=== PATIENT | female | born 1985 | race Caucasian/White ===

== ENCOUNTER 2018-07-15 16:10 | Day surgery (SDC) | payer SELFPAY ==
[2018-07-15] VITALS (13 sets, daily range): BP systolic 85–104; BP diastolic 44–94
[2018-07-15] MEDS ORDERED: NS(*) 0.9% 1000 ML BAG 1,000 ML IV ONE (16:30)
--- NOTE | 2018-07-15 16:44 | ER Report ---
History and Physical Time Seen By MD: 16:15 HPI/ROS CHIEF COMPLAINT: vaginal bleeding, syncope HISTORY OF PRESENT ILLNESS: at 10 wks presents with vaginal bleeding, cramping that began this am, followed by lightheadedness and syncope x 2. Continued vb, mild cramping, continued lightheaded. No cp/sob/palpitations/ No fam hx bleeding diathesis REVIEW OF SYSTEMS: Constitutional: No fever, no chills. Eyes: No discharge. ENT: No sore throat. Cardiovascular: No chest pain, no palpitations. Respiratory: No cough, no shortness of breath. Gastrointestinal: above Genitourinary: No dysuria; vb as above Musculoskeletal: No back pain. Skin: No rashes. Neurological: No headache. Remainder of the 14 system rev: Yes Allergies: Coded Allergies: Penicillins (Verified Allergy, Unknown, RASH, 07/15/18) codeine (Verified Allergy, Unknown, NAUSEA/VOMITING, 07/15/18) Reviewed Nurses Notes: Yes Hx Substance Use Disorder: No Hx Alcohol Use: No Constitutional Vital Sign - Last 24 Hours 07/15/18 07/15/18 07/15/18 07/15/18 16:10 16:15 16:19 16:21 Temp 97.7 Pulse 99 87 Resp 26 12 B/P (MAP) 111/82 (92) 101/82 (88) 101/81 Pulse Ox 98 100 O2 Delivery Room Air 07/15/18 07/15/18 07/15/18 07/15/18 16:25 16:30 16:40 16:44 Pulse 92 93 Resp 26 18 B/P (MAP) 111/70 (84) 95/51 (66) Pulse Ox 99 100 07/15/18 07/15/18 07/15/18 07/15/18 16:55 16:59 17:10 17:15 Pulse 82 80 84 Resp 19 30 18 B/P (MAP) 111/57 (75) 121/61 (81) Pulse Ox 100 99 100 07/15/18 07/15/18 17:30 17:45 Pulse 81 Resp 13 B/P (MAP) 91/45 (60) 115/69 (84) Pulse Ox 100 Physical Exam General Appearance: The patient is alert, has no immediate need for airway protection and no signs of toxicity. Eyes: Pupils equal and round no pallor or injection. ENT, Mouth: Mucous membranes are moist. Respiratory: There are no retractions, lungs are clear to auscultation. Cardiovascular: Regular rate and rhythm. Occ pvc's, no murmurs; borderline tachycardia Gastrointestinal: suprapubic ttp - copious blood from vagina, os open, multiple clots Neurological: alert, oriented Skin: Warm and dry, no rashes. Musculoskeletal: Extremities are nontender, nonswollen and have full range of motion. [ ] DIFFERENTIAL DIAGNOSIS: After history and physical exam differential diagnosis was considered for ectopic, miscarriage with uterine hemorrhage Medical Decision Making Data Points Result Diagram: 07/15/18 1639 07/15/18 1639 Laboratory Hematology Test 07/15/18 16:39 Red Blood Count 4.61 M/uL (4.17-5.56) Mean Corpuscular Volume 89.3 fL (80.0-96.0) Mean Corpuscular Hemoglobin 30.4 pg (26.0-33.0) Mean Corpuscular Hemoglobin Concent 34.0 g/dL (32.0-36.0) Red Cell Distribution Width 12.5 % (11.5-14.5) Mean Platelet Volume 7.1 fL (7.2-11.1) Neutrophils (%) (Auto) 78.8 % (39.4-72.5) Lymphocytes (%) (Auto) 15.8 % (17.6-49.6) Monocytes (%) (Auto) 3.9 % (4.1-12.4) Eosinophils (%) (Auto) 0.5 % (0.4-6.7) Basophils (%) (Auto) 1.0 % (0.3-1.4) Nucleated RBC Relative Count (auto) 0.0 /100WBC Neutrophils # (Auto) 12.4 K/uL (2.0-7.4) Lymphocytes # (Auto) 2.5 K/uL (1.3-3.6) Monocytes # (Auto) 0.6 K/uL (0.3-1.0) Eosinophils # (Auto) 0.1 K/uL (0.0-0.5) Basophils # (Auto) 0.2 K/uL (0.0-0.1) Nucleated RBC Absolute Count (auto) 0.00 K/uL Sodium Level 135 mmol/L (137-145) Potassium Level 3.1 mmol/L (3.5-5.0) Chloride Level 104 mmol/L (98-107) Carbon Dioxide Level 19 mmol/L (22-31) Blood Urea Nitrogen 10 mg/dl (7-18) Creatinine 0.80 mg/dl (0.52-1.04) Glomerular Filtration Rate Calc > 60.0 Random Glucose 102 mg/dl (75-110) Calcium Level 9.0 mg/dl (8.4-10.2) Magnesium Level 1.9 mg/dl (1.7-2.2) Total Bilirubin 0.3 mg/dl (0.2-1.3) Aspartate Amino Transf (AST/SGOT) 17 U/L (0-35) Alanine Aminotransferase (ALT/SGPT) 30 U/L (0-56) Alkaline Phosphatase 56 U/L (0-126) Total Protein 7.1 g/dl (6.3-8.2) Albumin 3.9 g/dl (3.5-5.0) Human Chorionic Gonadotropin, Quant 25946 mIU/ml Chemistry Test 07/15/18 16:39 White Blood Count 15.7 k/uL (4.5-11.0) Red Blood Count 4.61 M/uL (4.17-5.56) Hemoglobin 14.0 g/dL (12.0-16.0) Hematocrit 41.2 % (34.0-47.0) Mean Corpuscular Volume 89.3 fL (80.0-96.0) Mean Corpuscular Hemoglobin 30.4 pg (26.0-33.0) Mean Corpuscular Hemoglobin Concent 34.0 g/dL (32.0-36.0) Red Cell Distribution Width 12.5 % (11.5-14.5) Platelet Count 375 K/uL (150-450) Mean Platelet Volume 7.1 fL (7.2-11.1) Neutrophils (%) (Auto) 78.8 % (39.4-72.5) Lymphocytes (%) (Auto) 15.8 % (17.6-49.6) Monocytes (%) (Auto) 3.9 % (4.1-12.4) Eosinophils (%) (Auto) 0.5 % (0.4-6.7) Basophils (%) (Auto) 1.0 % (0.3-1.4) Nucleated RBC Relative Count (auto) 0.0 /100WBC Neutrophils # (Auto) 12.4 K/uL (2.0-7.4) Lymphocytes # (Auto) 2.5 K/uL (1.3-3.6) Monocytes # (Auto) 0.6 K/uL (0.3-1.0) Eosinophils # (Auto) 0.1 K/uL (0.0-0.5) Basophils # (Auto) 0.2 K/uL (0.0-0.1) Nucleated RBC Absolute Count (auto) 0.00 K/uL Glomerular Filtration Rate Calc > 60.0 Calcium Level 9.0 mg/dl (8.4-10.2) Magnesium Level 1.9 mg/dl (1.7-2.2) Total Bilirubin 0.3 mg/dl (0.2-1.3) Aspartate Amino Transf (AST/SGOT) 17 U/L (0-35) Alanine Aminotransferase (ALT/SGPT) 30 U/L (0-56) Alkaline Phosphatase 56 U/L (0-126) Total Protein 7.1 g/dl (6.3-8.2) Albumin 3.9 g/dl (3.5-5.0) Human Chorionic Gonadotropin, Quant 86730 mIU/ml EKG/Imaging EKG Interpretation 12 lead EKG: Rhythm: normal sinus rhythm [place]: normal QRS: normal ST segments: normal prolonged QT Monitor Interpretation: Normal Sinus Rhythm ED Course/Re-evaluation ED Course Pt presents with vaginal bleeding, syncope x 2; concerning for vaginal hemorr jesse/ exam shows open os and ongoing hemorrhage; I obtained US, labs, IV placed. OB c/s and present in ED promptly Blood continues extruding from os; will admit to OR. Decision to Disposition Date: Jul 15, 2018 Decision to Disposition Time: 17:30 Critical Care Time I spent a total of 45 min of critical care time in obtaining history, performing a physical exam, bedside monitoring of interventions, collecting and interpreting tests and discussion with consultants but not including time spent performing procedures - circulatory/hemorrhage Depart Departure Latest Vital Signs Vital Signs Date Time Temp Pulse Resp B/P (MAP) Pulse Ox O2 Delivery O2 Flow Rate FiO2 07/15/18 17:45 81 13 115/69 (84) 100 07/15/18 16:21 97.7 Room Air Impression: Primary Impression: Uterine hemorrhage Condition: Critical Disposition: Admitted from ER SHAE MADSEN MD Jul 15, 2018 16:44
[2018-07-15 16:59] LABS: PLATELET COUNT, AUTOMATED 375 K/uL (150-450)
[2018-07-15] MEDS ORDERED: MISOPROSTOL 25 MCG CAP PV STA (17:00)
--- NOTE | 2018-07-15 17:08 | EKG ---
FACILITY: [facility] PATIENT NAME: SUDHAKAR VELASQUEZ : [id number] MR: [id number] V: [id number] EXAM DATE: ORDERING PHYSICIAN: SHAE MADSEN TECHNOLOGIST: GRADY Test Reason : W BLEEDING Blood Pressure : / mmHG Vent. Rate : 077 BPM Atrial Rate : 077 BPM P-R Int : 110 ms QRS Dur : 080 ms QT Int : 434 ms P-R-T Axes : 050 053 050 degrees QTc Int : 491 ms Normal sinus rhythm Prolonged QT No ST-T abnormalities No previous ECGs available Confirmed by LULA JOY ([id number]) on 07/15/2018 6:39:17 PM Referred By: TENA Confirmed By:LULA JOY
[2018-07-15] MEDS ORDERED: fentaNYL CITR 100 MCG/2 ML AMP IVP ONE (18:00)
[2018-07-15] MEDS ORDERED: LIDOCAINE MPF 1% 5 ML VIAL ONE (18:14)
[2018-07-15] MEDS ORDERED: ONDANSETRON 4 MG/2 ML VIAL ONE (18:14)
[2018-07-15] MEDS ORDERED: fentaNYL CITR 100 MCG/2 ML AMP ONE ×2 (18:14→19:35)
[2018-07-15] MEDS ORDERED: PROPOFOL EMUL(*) 10MG/ML 20 ML 20 ML ONE (18:14)
[2018-07-15] MEDS ORDERED: KETAMINE HCL 200 MG/20 ML MDV ONE (18:15)
--- NOTE | 2018-07-15 18:17 | History & Physical ---
History of Present Illness EDC per LMP: Feb 10, 2018 Estimated Gestational Age: 10.0 Chief Complaint Vaginal bleeding History of Present Illness 33-year-old at 10w0d by certain LMP presented to the emergency department with heavy vaginal bleeding and syncope. She first started having vaginal bleeding today at 1500 hrs., which then turned into large clots and hemorrhaging. She had 2 episodes of syncope. The emergency room physician evaluated her and found her that she had an open cervical os with hemorrhage of blood. She is feeling dizzy, faint and having lots of cramping. This is an intended . She is present with her . History Patient's Blood Type: A Positive Obstetrical History: Primip Past Medical History: See ED documentation Allergies: Coded Allergies: Penicillins (Verified Allergy, Unknown, RASH, 07/15/18) codeine (Verified Allergy, Unknown, NAUSEA/VOMITING, 07/15/18) Review of Systems Constitutional: No Fever Neurological: Syncope, Dizziness Cardiovascular: No Chest Pain, No Palpitations Respiratory: No Shortness of Breath Gastrointestinal: Nausea; No Vomiting, No Diarrhea Psychiatric: No Depression, No Anxiety Exam General Exam Vital Signs Vital Signs Date Time Temp Pulse Resp B/P (MAP) Pulse Ox O2 Delivery O2 Flow Rate FiO2 07/15/18 17:45 81 13 115/69 (84) 100 07/15/18 16:21 97.7 Room Air General Apperance: Other (Faint, pale, writhing in bed with cramping) Eyes: Normal Extraocular Movement & Vison Cardiovascular: Regular Rate and Rhythm Respiratory: No Respiratory Distress, Clear to Auscultation Abdomen: Other (Generally tender but not acute) : Other (Abundant clot removed from the vagina, tissue is extruding from the cervix, cervix is open, some was able to be removed, but there is still some visible in the uterus) Musculoskeletal: No Weakness/Pain Extremities: No Cyanosis,Clubbing or Edema Integumentary: Skin Intact without Lesions or Rash Psychological: Alert & Oriented X3, Appropriate Mood & Affect Medical Decision Making Data Points Result Diagram: 07/15/18 1639 07/15/18 1639 Assessment and Plan Problems: (1) Incomplete with delayed or excessive hemorrhage Assessment & Plan: 33-year-old at 10w0d by certain LMP presented to the emergency department with incomplete AB and hemorrhage. She is hypotensive and feels faint. We discussed options of management including medical versus surgical. However, I recommended surgical due to her vital signs and symptoms. After discussing with their friend, the patient and her have elected to proceed with a suction dilation and curettage. We discussed the risks, benefits and alternatives. The patient elects to proceed. She has been typed and crossed for 2 units of packed red blood cells. She is Rh positive. EDI SUTTON MD Jul 15, 2018 18:17
--- NOTE | 2018-07-15 18:47 | RADIOLOGY IMAGING REPORT ---
FACILITY: [facility] PATIENT NAME: Karen Saunders : 1985 MR: [id number] V: [id number] EXAM DATE: ORDERING PHYSICIAN: SHAE MADSEN TECHNOLOGIST: Location: [facility] [place] Patient: Karen Saunders : 1985 Visit/Account:[id number] Date of Sevice: 07/15/2018 Examination: 1st trimester obstetric ultrasound Comparison: None Available History: Bleeding. LMP: 05/06/2018 Gestational age based on LMP: 10 weeks 0 days JULIA based on LMP: 02/10/2019 Findings: Standard endovaginal obstetric ultrasound with color flow and spectral analysis. Uterus: At the start of the study there is a complex fluid and tissue in the vaginal canal. Mid exam this is removed by Dr. Barros. Towards the uterine fundus there is a more focal heterogeneous reg ion but no morphologically normal gestational sac is identified. Adnexa: Right ovary 2.8 cm cyst. The left ovary is not visualized. No adnexal mass is identified. Free fluid: Minimal simple appearing pelvic free fluid. Urinary bladder: Empty IMPRESSION: 1. No evidence of a morphologically normal intrauterine gestation or findings of an ectopic . 2. Complex fluid and potentially tissue in the uterus and vaginal canal with no identifiable gestatio nal sac. Retained products of conception cannot be excluded and per report, the patient is currently in the operating room. Results were discussed with SHAE MADSEN at 07/15/2018 6:42 PM. Report Dictated By: Oniel Joy MD at 07/15/2018 6:37 PM Report E-Signed By: Oniel Joy MD at 07/15/2018 6:44 PM WSN:[id number]
[2018-07-15] MEDS ORDERED: NORMOSOL R SOLN(*) 1000 ML BAG 1,000 ML IV ONE (19:39)
[2018-07-15] MEDS ORDERED: KETOROLAC 30 MG/ML VIAL IVP ONE (19:50)
[2018-07-15] MEDS ORDERED: HYDROmorphone HCL 2 MG/ML SDV IVP PRN (19:50)
[2018-07-15] MEDS ORDERED: LOR5/325 PO ×2 (19:57→20:02)
[2018-07-15] MEDS ORDERED: IBUP800T37 PO ×2 (19:57→20:02)
[2018-07-15] MEDS ORDERED: LR(*) 1000 ML BAG 1,000 ML IV ONE (20:04)
--- NOTE | 2018-07-15 20:04 | OB/GYN Discharge Summary ---
Discharge Summary Reason for Hosp/Final Diag: (1) Incomplete with delayed or excessive hemorrhage Hospital Course & Plan: 33-year-old at 10w0d by certain LMP presented to the emergency department with incomplete AB and hemorrhage. She is hypotensive and feels faint. We discussed options of management including medical versus surgical. However, I recommended surgical due to her vital signs and symptoms. After discussing with their friend, the patient and her have elected to proceed with a suction dilation and curettage. We discussed the risks, benefits and alternatives. The patient elects to proceed. She has been typed and crossed for 2 units of packed red blood cells. She is Rh positive. Lates Vital Signs Vital Signs Date Time Temp Pulse Resp B/P (MAP) Pulse Ox O2 Delivery O2 Flow Rate FiO2 07/15/18 18:35 78 07/15/18 18:20 17 114/96 (102) 100 07/15/18 16:21 97.7 Room Air Weight (Pounds): 175 Result Diagram: 07/15/18 1639 07/15/18 1639 Condition: Improved Discharge: Home, Self [facility] Meds Active Scripts Hydrocodone Bit/Acetaminophen (HYDROCODON-ACETAMINOPHEN 5-325) 1 Each Tablet, 1 EACH PO Q4-6H PRN for pain, #15 TAB 0 Refills Prov:EDI SUTTON MD 07/15/18 Ibuprofen (IBUPROFEN) 800 Mg Tablet, 1 TAB PO Q8H PRN for pain, #30 TAB 0 Refills TAKE WITH FOOD EVERY 8 HOURS Prov:EDI SUTTON MD 07/15/18 Follow up Referrals: [facility] - In Two Weeks @ [facility] [place] with EDI SUTTON MD Discharge Diet: As Tolerates Discharge Activity: Pelvic Rest EDI SUTTON MD Jul 15, 2018 20:04
[2018-07-15] MEDS ORDERED: METOCLOPRAMIDE 10 MG/2 ML SDV IVP PRN (20:05)
[2018-07-15] MEDS ORDERED: APAP/HYDROCODONE 325/5 TAB ONE (20:53)
[2018-07-16] MEDS ORDERED: IBUPROFEN 800 MG TAB PO SCH (01:00)
--- NOTE | 2018-07-16 01:41 | OPERATIVE REPORT 1 ---
EVENT DATE: July 15, 2018 SURGEON: Paulette Barros MD ANESTHESIOLOGIST: Randolph Saldana MD ANESTHESIA: General. PREOPERATIVE DIAGNOSIS Incomplete with acute hemorrhage. POSTOPERATIVE DIAGNOSIS Incomplete with acute hemorrhage. PROCEDURE PERFORMED Suction dilatation and curettage with intraoperative ultrasound. ESTIMATED BLOOD LOSS 1000 mL. SPECIMENS Products of conception. INTRAVENOUS FLUIDS Please see operative record. URINE OUTPUT 25 mL. FINDINGS Anterior intramural myoma noted on ultrasound. INDICATIONS FOR PROCEDURE This patient is a 33-year-old 1, para 0, who presented at 10 weeks and 0 days to the emergency department with heavy vaginal bleeding and syncope. She was having an acute hemorrhage within the emergency department and developed hypotension and syncope. She was consented for a suction dilatation and curettage. While she was being prepared for the operating room, the emergency department physician ordered two units of packed red blood cells, one of which was administered intraoperatively. DESCRIPTION OF PROCEDURE The patient was properly identified and taken to the operating room. She was placed under general anesthesia and placed in the dorsal lithotomy position and prepped and draped in the usual fashion for a vaginal procedure. A bimanual exam was performed, revealing a midline 10 cm uterus. A speculum was placed to visualize the cervix, and abundant clot did come from the vaginal vault at that time. The cervix was able to be visualized after removing this clot and was noted to be dilated. The anterior lip of the cervix was grasped with an Allis clamp. A 9 mm suction curette was then advanced to the fundus. Suction was applied and the uterus was evacuated. Three passes of this curette were taken, at which time it appeared that the products of conception were completely evacuated. The patient received Methergine at this time; however, she continued to have free-flow bleeding. Uterine massage was then applied, followed by placement of 800 mcg of Cytotec. The patient continued to have bleeding. Therefore, an additional pass with the suction curette was performed; however, the patient continued to have free-flow bleeding. Therefore, as pressure was applied, an ultrasound machine was retrieved from the clinic. I then performed a transvaginal ultrasound, which revealed tissue left at the fundus of the uterus. This tissue was then able to be identified and removed with the suction curette. The transvaginal ultrasound was again performed, confirming adequate removal of products of conception and an anterior intramural myoma appearing approximately 3 cm. At this time, the bleeding was improved. Therefore, the speculum was removed and the procedure was terminated. The patient tolerated this procedure well, although she did receive one unit of packed red blood cells as mentioned previously. She then was transferred to the postanesthesia care unit. DARSHANA
== END 2018-07-15 20:30 | disposition home or self-care (01) ==
LOC: ER 16:14 → OR 18:02
PROVIDERS: ATTEND Obstetrics & Gynecology
DX: O03.1 Delayed or excessive hemorrhage following incomplete spontaneous abortion (principal); O34.11 Maternal care for benign tumor of corpus uteri, first trimester; D25.1 Intramural leiomyoma of uterus; Z3A.10 10 weeks gestation of pregnancy
CPT/HCPCS: 36415; 76817; 82040; 82247; 82310; 82374; 82435; 82565; 82947; 83735; 84075; 84132; 84155; 84295; 84450; 84460; 84520; 84702; 85025; 85027; 86850; 86900; 86901; 86920; 93005; 99291; J1885; J2001; J2405; J2704; J3010; J3490; P9016

== ENCOUNTER → 2018-07-28 | Outpatient (CLI) | payer OTHER ==
[~2018-07-28] MED LIST: IBUP800T37 PO; LOR5/325 PO
== END ==
LOC: LAB 13:34
PROVIDERS: ATTEND Obstetrics & Gynecology
DX: O03.1 Delayed or excessive hemorrhage following incomplete spontaneous abortion (principal); R53.83 Other fatigue; R10.2 Pelvic and perineal pain
CPT/HCPCS: 36415; 84443; 85027; 87088

== ENCOUNTER → 2018-10-25 | Outpatient (CLI) | payer OTHER ==
[~2018-10-25] MED LIST changes: +PREN-127 PO
[2018-10-25 10:30] LABS: PLATELET COUNT, AUTOMATED 354 K/uL (150-450)
== END ==
LOC: LAB 09:35
PROVIDERS: ATTEND Obstetrics & Gynecology
DX: O09.521 Supervision of elderly multigravida, first trimester (principal)
CPT/HCPCS: 36415; 81001; 85025; 86592; 86703; 86762; 86850; 86900; 86901; 87088; 87340

== ENCOUNTER → 2019-01-17 | Outpatient (CLI) | payer SELFPAY ==
--- NOTE | 2019-01-17 14:10 | RADIOLOGY IMAGING REPORT ---
[facility] PATIENT NAME: Karen Saunders : 1985 MR: [id number] V: [id number] EXAM DATE: ORDERING PHYSICIAN: CHELSEY STAPLES TECHNOLOGIST: Location: [facility] [place] Patient: Karen Saunders : 1985 Visit/Account:[id number] Date of Sevice: 01/17/2019 EXAMINATION: Ultrasound transabdominal OB > 14 weeks with anatomic evaluation HISTORY: Anatomic survey COMPARISON: None. TECHNIQUE: Transabdominal imaging was performed for assessment of the fetus and maternal pelvic structures. T ransvaginal imaging was not performed. FINDINGS: Placenta: Fundal. There is a sonolucent region within the right side of the placenta possibly repres enting a venous perry without previa. Uterus: Gravid, otherwise normal Cervix: Long and closed. Maternal Ovaries: Not visualized. Maternal and other adnexa findings: Not visualized Intrauterine gestations: One. presentation: Variable heart rate: Normal and regular at 152 bpm Amniotic fluid index: 18.3 cm Largest amniotic fluid pocket: 6.35 cm Gestational Parameters: BPD: 4.21 cm 18 weeks/ six days, 53% HC: 15.96 cm 18 weeks/ six days, 47% AC: 15.15 cm 20 weeks/ three days, 91% FL: 2.89 cm 19 weeks/ zero days, 50% Average ultrasound age (AUA): 19 weeks/two days, JULIA 06/11/2019 Estimated gestational age by JULIA: 18 weeks/five days, JULIA 06/15/2019 Estimated weight (EFW): 300 grams +/- 44 grams EFW for JULIA: 90 percentile Anatomic Survey: Intracranial structures, 4-chamber heart, stomach, kidneys, urinary bladder, spine, 3-vessel cord and cord insertion are unremarkable. Two upper and two lower extremities visualized. Cardiac ventricula r outflow tracts, palate and lips are unremarkable in appearance. IMPRESSION: Single viable fetus in variable presentation with an estimated gestational age by measur ements of 19 weeks and two days. Estimated gestational age by LMP is 18 weeks and five days. Estimated weight is 300 g equivalent to the 90th percentile Report Dictated By: Madelaine Lott MD at 01/17/2019 2:02 PM Report E-Signed By: Madelaine Lott MD at 01/17/2019 2:06 PM WSN:[id number]
== END ==
LOC: RAD 09:34
PROVIDERS: ATTEND Obstetrics & Gynecology
DX: Z02.9 Encounter for administrative examinations, unspecified (principal)